=== PATIENT | male | born 1940 | race Caucasian/White ===

== ENCOUNTER 2023-02-02 14:50 | Emergency (ER) | payer BC, MEDICARE ==
[~2023-02-02 14:50] MED LIST: Pantoprazole 40 MG Vial IVPUSH ONE; Sodium Chloride 0.9% 1,000 ML IV SCH
[2023-02-02 15:01] LABS: BASOPHILS PERCENT AUTO 0.4 % (0.2-1.2); EOSINOPHILS ABSOLUTE AUTO 0.1 x10^3/uL (0.0-0.5); EOSINOPHILS PERCENT AUTO 0.5 % (0.0-4.0); HEMATOCRIT 30.5 % (40.0-52.0); HEMOGLOBIN 10.3 g/dL (14.0-18.0); IMMATURE GRAN ABSOLUTE AUTO 0.03 x10^3/uL (0.00-0.07); LYMPHOCYTES ABSOLUTE AUTO 1.3 x10^3/uL (1.0-4.8); LYMPHOCYTES PERCENT AUTO 12.8 % (25.0-50.0); MEAN CORPUSCULAR HEMOGLOBIN 31.4 pg (26.0-32.0); MEAN CORPUSCULAR HGB CONC 33.8 g/dL (32.0-36.0); MONOCYTES ABSOLUTE AUTO 0.8 x10^3/uL (0.0-0.8); MONOCYTES PERCENT AUTO 8.3 % (2.0-11.0); NEUTROPHILS ABSOLUTE AUTO 7.7 x10^3/uL (1.8-7.7); NEUTROPHILS PERCENT AUTO 77.7 % (50.0-80.0); PLATELET COUNT,PLT 150 x10^3/uL (130-400); RED BLOOD CELL COUNT 3.28 x10^6/uL (4.5-6.0); WHITE BLOOD CELL COUNT,WBC 9.9 x10^3/uL (4.0-10.0)
[2023-02-02 15:16] LABS: ALANINE AMINOTRANSFERASE,ALT 16 U/L (16-63); ALBUMIN 2.9 g/dL (3.4-5.0); ALKALINE PHOSPHATASE 54 U/L (46-116); ASPARTATE AMNIOTRANSFERASE,AST 14 U/L (15-37); BILIRUBIN TOTAL 0.4 mg/dL (0.2-1.0); BLOOD UREA NITROGEN,BUN 35 mg/dL (7-18); CARBON DIOXIDE,CO2 21 mmol/L (21-32); CHLORIDE,CL 108 mmol/L (98-107); CREATININE 1.2 mg/dL (0.70-1.30); GLUCOSE RANDOM 247 mg/dL (70-99); MAGNESIUM 2.1 mg/dL (1.8-2.4); POTASSIUM,K 4.9 mmol/L (3.5-5.1); PROTEIN TOTAL,TP 5.8 g/dL (6.4-8.2); SODIUM,NA 140 mmol/L (136-145)
[2023-02-02 15:40] LABS: ANION GAP 15.9 mmol/L (5-15); ESTIMATED GFR 61 mL/min (>=60)
[2023-02-02 20:40] VITALS: BP 105/55; PULSE 65
== END 2023-02-02 15:30 | disposition short-term general hospital (02) ==
LOC: VM.ED 14:50
DX: R53.1 Weakness (principal); K92.2 Gastrointestinal hemorrhage, unspecified; I25.10 Atherosclerotic heart disease of native coronary artery without angina pectoris; E78.00 Pure hypercholesterolemia, unspecified; I10 Essential (primary) hypertension; E11.9 Type 2 diabetes mellitus without complications; Z79.02 Long term (current) use of antithrombotics/antiplatelets; Z79.4 Long term (current) use of insulin; Z79.899 Other long term (current) drug therapy; Z79.82 Long term (current) use of aspirin
CPT/HCPCS: 36415; 36430; 80053; 83605; 83735; 84484; 85025; 86850; 86900; 86901; 86920; 86922; 96361; 96374; 99285; C9113; J7030; P9016; 99283

== ENCOUNTER 2024-06-21 08:33 | Inpatient (IN) | payer MEDICARE ==
[2024-06-21] MEDS: HYDROmorphone 0.5 MG/0.5 ML Syringe IVPUSH PRN (08:58)
[2024-06-21] MEDS: Ondansetron 4 MG/2 ML SDV IVPUSH PRN (08:58)
[2024-06-21] MEDS: Sodium Chloride 0.9% 1,000 ML IV SCH ×2 (08:59→12:42)
[2024-06-21] MEDS: Sodium Chloride 0.9% 500 ML IV ONE ×2 (09:00→12:54)
[2024-06-21 09:22] LABS: HEMATOCRIT 40.1 % (40.0-52.0); HEMOGLOBIN 12.8 g/dL (14.0-18.0); IMMATURE GRAN ABSOLUTE AUTO 0.04 x10^3/uL (0.00-0.07); LYMPHOCYTES ABSOLUTE AUTO 0.4 x10^3/uL (1.0-4.8); LYMPHOCYTES PERCENT AUTO 1.9 % (25.0-50.0); MEAN CORPUSCULAR HEMOGLOBIN 24.4 pg (26.0-32.0); MEAN CORPUSCULAR HGB CONC 31.9 g/dL (32.0-36.0); MEAN CORPUSCULAR VOLUME 76.4 fL (78.0-93.0); MONOCYTES ABSOLUTE AUTO 1.2 x10^3/uL (0.0-0.8); MONOCYTES PERCENT AUTO 6.6 % (2.0-11.0); NEUTROPHILS ABSOLUTE AUTO 16.5 x10^3/uL (1.8-7.7); NEUTROPHILS PERCENT AUTO 91.3 % (50.0-80.0); PLATELET COUNT,PLT 371 x10^3/uL (130-400); RED BLOOD CELL COUNT 5.25 x10^6/uL (4.5-6.0); WHITE BLOOD CELL COUNT,WBC 18.1 x10^3/uL (4.0-10.0)
[2024-06-21 09:35] LABS: INR 1.4 (0.9-1.1); PROTHROMBIN TIME 14.1 SEC (8.9-11.5)
[2024-06-21 09:40] LABS: APPEARANCE,URINE CLEAR (CLEAR); BILIRUBIN,URINE SMALL (NEGATIVE); COLOR,URINE YELLOW (YELLOW); GLUCOSE,URINE 500 mg/dL (NEGATIVE); KETONES,URINE >=160 mg/dL (NEGATIVE); LEUKOCYTE ESTERASE,URINE NEGATIVE (NEGATIVE); NITRITE,URINE NEGATIVE (NEGATIVE); OCCULT BLOOD,URINE MODERATE (NEGATIVE); PROTEIN,URINE 100 mg/dL (NEGATIVE); UROBILINOGEN,URINE 0.2 EU/dL (0.2)
[2024-06-21 09:43] LABS: LACTIC ACID 1.9 mmol/L (0.4-2.0)
[2024-06-21 09:50] LABS: BACTERIA,URINE FEW /HPF (NOT SEEN); GRANULAR CASTS,URINE FEW; RBC,URINE 0-5 /HPF (NOT SEEN); SQUAMOUS EPITHELIAL CELLS,UR RARE /HPF (NOT SEEN); WBC,URINE 0-5 /HPF (NOT SEEN)
[2024-06-21 09:52] LABS: A/G RATIO 0.39; ANION GAP 32.3 mmol/L (5-15); BILIRUBIN TOTAL 0.7 mg/dL (0.2-1.0); CALCIUM 9.9 mg/dL (8.5-10.1); CREATININE 1.2 mg/dL (0.70-1.30); EST CRCL DRUG DOSING (CG) 52.09 mL/min; POTASSIUM,K 3.3 mmol/L (3.5-5.1); PROTEIN TOTAL,TP 7.1 g/dL (6.4-8.2)
[2024-06-21] MEDS: cefTRIAXone 1 GM Vial IVPUSH ONE (09:56)
[2024-06-21] MEDS: Sodium Chloride 0.9% 10 ML Syringe FLUSH PRN (09:59)
[2024-06-21] MEDS: Iopamidol 612 MG/ML 100 ML Bottle IVPUSH ONE (10:24)
[2024-06-21] MEDS: Potassium Chloride Riders 20 MEQ in Premix Bag 1 BAG IV ONE (10:35)
[2024-06-21] MEDS: Metoprolol Succinate 50 MG Tab.ER PO SCH (12:55)
[2024-06-21 13:07] LABS: ANION GAP 29.4 mmol/L (5-15); BLOOD UREA NITROGEN,BUN 33 mg/dL (7-18); CALCIUM 9.2 mg/dL (8.5-10.1); CARBON DIOXIDE,CO2 14 mmol/L (21-32); CHLORIDE,CL 100 mmol/L (98-107); CREATININE 1.1 mg/dL (0.70-1.30); ESTIMATED GFR 67 mL/min (>=60); GLUCOSE RANDOM 151 mg/dL (70-99); POTASSIUM,K 3.4 mmol/L (3.5-5.1); SODIUM,NA 140 mmol/L (136-145)
[2024-06-21] MEDS ORDERED: Lidocaine 2% Viscous Solution 15 ML UD PO PRN (18:06)
[2024-06-21] MEDS ORDERED: Atropine 1% Ophth Soln 5 ML Bottle SL PRN (18:06)
[2024-06-21] MEDS ORDERED: Acetaminophen 325 MG Tab PO PRN (18:06)
[2024-06-21] MEDS ORDERED: Acetaminophen 650 MG Supp RECTAL PRN (18:06)
[2024-06-21] MEDS ORDERED: diphenhydrAMINE 25 MG Cap PO PRN (18:06)
[2024-06-21] MEDS ORDERED: Menthol/Zinc Oxide Ointment 3.5 GM Tube TOP PRN (18:06)
[2024-06-21 20:24] VITALS: BP 128/72
[2024-06-22 06:06] VITALS: PULSE 166
[2024-06-22] MEDS: LORazepam 2 MG/ML SDV IV PRN (10:34)
[2024-06-22] MEDS: HYDROmorphone 0.5 MG/0.5 ML Syringe IVPUSH SCH (12:02)
== END 2024-06-22 17:10 | disposition expired | DRG 951 ==
LOC: VM.ED 08:33 → VM.MS 10:50
PROVIDERS: ADMIT Internal Medicine; ATTEND Internal Medicine
DX: Z51.5 Encounter for palliative care (principal); E11.10 Type 2 diabetes mellitus with ketoacidosis without coma; K63.1 Perforation of intestine (nontraumatic); C18.9 Malignant neoplasm of colon, unspecified; E86.0 Dehydration; Z66 Do not resuscitate; F01.50 Vascular dementia, unspecified severity, without behavioral disturbance, psychotic disturbance, mood disturbance, and anxiety; E11.9 Type 2 diabetes mellitus without complications; I73.9 Peripheral vascular disease, unspecified; I10 Essential (primary) hypertension; G47.33 Obstructive sleep apnea (adult) (pediatric); I48.91 Unspecified atrial fibrillation; Z91.018 Allergy to other foods; Z79.01 Long term (current) use of anticoagulants; I25.10 Atherosclerotic heart disease of native coronary artery without angina pectoris; E78.00 Pure hypercholesterolemia, unspecified; R33.9 Retention of urine, unspecified; E87.6 Hypokalemia; Z79.4 Long term (current) use of insulin; Z79.82 Long term (current) use of aspirin; Z79.899 Other long term (current) drug therapy; Z79.84 Long term (current) use of oral hypoglycemic drugs; Z95.1 Presence of aortocoronary bypass graft; Z87.891 Personal history of nicotine dependence; Z95.5 Presence of coronary angioplasty implant and graft; Z98.890 Other specified postprocedural states; Z86.79 Personal history of other diseases of the circulatory system
CPT/HCPCS: 36415; 51702; 71045; 74177; 80048; 80053; 81001; 82550; 82947; 83605; 83690; 83735; 85025; 85610; 93005; 96361; 96365; 96375; 99285-25; J0696; J1171; J2060; J2405; J3480; J3490; J7030; Q9967